=== PATIENT | female | born 1985 | race Caucasian/White ===

== ENCOUNTER → 2017-12-30 | Outpatient (CLI) | payer OTHER | END | disposition home or self-care (01) | LOC: KCIC MRI 15:23 | DX: M47.892 Other spondylosis, cervical region (principal); M48.02 Spinal stenosis, cervical region | CPT/HCPCS: 72141 ==

== ENCOUNTER → 2019-04-12 | Outpatient (CLI) | payer OTHER ==
--- NOTE | 2019-04-12 16:26 | KCIC ---
MRI of the cervical spine without contrast 04/12/2019 CLINICAL HISTORY: Chronic neck pain shooting pain down the spine. TECHNIQUE: Unenhanced T1-weighted, T2-weighted and inversion recovery sagittal and gradient echo and T2-weighted axial images of the cervical spine were obtained. FINDINGS: Comparison study is dated 12/30/2017. Minimal lateral curvature of the cervical spine is seen convex to the right. There is slight reversal the normal cervical lordosis. Degenerative signal changes are seen involving all of the disks of the cervical spine. The marrow signal of the visualized bony structures is within normal limits. No area of abnormal signal intensity is seen involving the cervical spinal cord. At the C2-3 and C3-4 disc spaces there are minimal to mild generalized disc bulges. Degenerative changes are seen involving the uncovertebral and facet joints bilaterally. These findings do not result in significant central spinal canal or neural foraminal stenosis. At the C4-5 disc space there is a mild generalized disc bulge. Superimposed on this disc bulge is a right paracentral focal disc protrusion. This measures 3 mm in AP diameter. Degenerative changes are seen involving the uncovertebral and facet joints bilaterally. These findings efface the anterior CSF resulting in mild central spinal canal stenosis. The disc protrusion mildly deforms the anterior surface of the cervical spinal cord without impinging upon it. No neural foraminal stenosis is seen. At the C5-6 disc space there is a mild generalized disc bulge. Superimposed on this disc bulge is a left paracentral focal disc protrusion. This measures 2 mm in AP diameter. Degenerative changes are seen involving the uncovertebral and facet joints bilaterally. These findings do not result in significant central spinal canal or neural foraminal stenosis. At the C6-7 disc space there is a mild generalized disc bulge. Mild degenerative changes are seen involving the uncovertebral and facet joints bilaterally. Superimposed on this disc bulge is a focal central disc protrusion. This measures 3 mm in AP diameter. This efface the anterior CSF without resulting in significant central spinal canal stenosis. No neural foraminal stenosis is seen. At the C7-T1 disc space there is a minimal generalized disc bulge. Degenerative changes are seen involving the facet joints bilaterally. These findings do not result in significant central spinal canal or neural foraminal stenosis. Since the previous examination there has been no significant interval change. IMPRESSION: Degenerative changes are seen throughout the cervical spine. These findings result in mild central spinal canal stenosis at C4-5 without evidence of cord impingement. No neural foraminal stenosis is seen. Electronically signed by: Sohail Marvin MD (04/12/2019 4:24 PM) [id number]
== END | disposition home or self-care (01) ==
LOC: KCIC MRI 15:18
DX: M47.813 Spondylosis without myelopathy or radiculopathy, cervicothoracic region (principal); M48.02 Spinal stenosis, cervical region; M50.23 Other cervical disc displacement, cervicothoracic region
CPT/HCPCS: 72141